=== PATIENT | female | born 2000 | race American Indian/Alaskan Native ===

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

== ENCOUNTER 2021-04-13 18:45 | Emergency (ER) | payer SELFPAY ==
[2021-04-13] MEDS ORDERED: ALPRAZolam 0.5 MG TAB PO ONE (19:34)
[2021-04-13] MEDS ORDERED: ASPIRIN 325 MG TAB PO ONE (19:34)
--- NOTE | 2021-04-13 19:55 | XRay Report ---
CHEST 2 VIEWS INDICATION / CLINICAL INFORMATION: CHEST PAIN. FINDINGS: SUPPORT DEVICES: None. HEART / MEDIASTINUM: No significant abnormality. LUNGS / PLEURA: No significant pulmonary or pleural abnormality. No pneumothorax. ADDITIONAL FINDINGS: No significant additional findings. IMPRESSION: 1. No acute findings. Signer Name: Woody Goodwin MD Signed: 04/13/2021 7:50 PM Workstation Name: [id number]
[2021-04-13 20:00] LABS: Basophils # (Auto) 0.1 K/mm3 (0.0-0.1); Basophils % (Auto) 0.9 % (0.0-1.8); Eosinophils # (Auto) 0.6 K/mm3 (0.0-0.4); Eosinophils % (Auto) 6.7 % (0.0-4.3); Hemoglobin 13.8 gm/dl (10.1-14.3); Lymphocytes # (Auto) 3.4 K/mm3 (1.2-5.4); Lymphocytes % (Auto) 39.6 % (13.4-35.0); Mean Corpuscular HGB Conc 32 % (30-34); Mean Corpuscular Volume 85 fl (79-97); Monocytes # (Auto) 0.4 K/mm3 (0.0-0.8); Monocytes % (Auto) 4.5 % (0.0-7.3); Platelet Count 369 K/mm3 (140-440); Red Blood Count 5.09 M/mm3 (3.65-5.03); Red Cell Distribution Width 12.6 % (13.2-15.2)
[2021-04-13 20:17] LABS: Alanine Aminotransferase 11 units/L (7-56); Albumin 4.8 g/dL (3.9-5); BUN/Creatinine Ratio 16; Blood Urea Nitrogen 13 mg/dL (7-17); Calcium 9.6 mg/dL (8.4-10.2); Hemolysis Index 7
--- NOTE | 2021-04-13 22:42 | Cat Scan Report ---
CTA CHEST WITH IV CONTRAST INDICATION: Pt complains of chest pain since last night, possible P.E.. TECHNIQUE: Axial CT images were obtained through the chest after injection of IV contrast. 3 plane MIP reconstru ctions were produced. All CT scans at this location are performed using CT dose reduction for ALARA b y means of automated exposure control. COMPARISON: None available. FINDINGS: Pulmonary Arteries: No pulmonary emboli. Thoracic Aorta: No acute abnormality. Heart: Normal. Lungs: No acute air space or interstitial disease. Pleura: No pleural effusion. No pneumothorax. Lymph Nodes: No significant adenopathy. Additional Findings: None. Upper Abdomen: No acute findings. Skeletal Structures: No significant osseous abnormality. IMPRESSION: 1. No CT evidence for pulmonary embolism. 2. No acute findings. Signer Name: Woody Woodson MD Signed: 04/13/2021 10:38 PM Workstation Name: [id number]
--- NOTE | 2021-04-13 23:02 | Emergency Department Report ---
ED General Adult HPI - General Chief complaint: Chest Pain Stated complaint: CHEST/BACK PAIN Source: patient Mode of arrival: Ambulatory Limitations: No Limitations - History of Present Illness Initial comments: Patient is a nulliparous 20-year-old -[place]cu[place] female with past medical history of chronic anxiety who presents to the ED with complaint of acute onset persistent anterior chest wall pain that radiates to the mid posterior thoracic area with tightness the last 24 hours. Patient states that the pain is sharp constant and worsened with cough or crying. Patient states that that she is currently living with a lot of family stressors making the symptoms worse. Patient denies dizziness, syncope, nausea and vomiting, abdominal pain, fever, chills, cough, lightheadedness or neck pain and change in vision Or palpitations. MD Complaint: anterior chest wall pain and tightness -: Sudden, hour(s) (24) Location: chest, back Radiation: back Severity scale (0 -10): 7 Quality: aching, sharp Consistency: constant Improves with: none Worsens with: other (crying) Associated Symptoms: denies other symptoms, chest pain. denies: confusion, cough, diaphoresis, fever/chills, headaches, loss of appetite, malaise, jaylon sea/vomiting, rash, shortness of breath, syncope, weakness Treatments Prior to Arrival: none - Related Data Previous Rx's Medication Instructions Recorded Last Taken Type Naproxen 500 mg PO BID PRN #14 tablet 06/18/20 Unknown Rx Naproxen 500 mg PO Q12H PRN #24 tablet 04/13/21 Unknown Rx hydrOXYzine PAMOATE [Vistaril] 25 mg PO Q8HR PRN #30 capsule 04/13/21 Unknown Rx Allergies Allergy/AdvReac Type Severity Reaction Status Date / Time No Known Allergies Allergy Verified 04/13/21 18:50 ED Review of Systems ROS: Stated complaint: CHEST/BACK PAIN Other details as noted in HPI Comment: All other systems reviewed and negative Constitutional: denies: chills, fever Eyes: denies: eye pain, eye discharge, vision change ENT: denies: ear pain, throat pain Respiratory: denies: cough, shortness of breath, wheezing Cardiovascular: chest pain (Anterior chest wall pain with tightness). denies: palpitations Endocrine: no symptoms reported Gastrointestinal: denies: abdominal pain, nausea, diarrhea Genitourinary: denies: urgency, dysuria, discharge Musculoskeletal: back pain (Mid posterior thoracic pain with movement, deep breath or crying.). denies: joint swelling, arthralgia Skin: denies: rash, lesions Neurological: denies: headache, weakness, paresthesias Psychiatric: anxiety. denies: depression Hematological/Lymphatic: denies: easy bleeding, easy bruising ED Past Medical Hx - Medications Home Medications: Home Medications Medication Instructions Recorded Confirmed Last Taken Type Naproxen 500 mg PO BID PRN #14 tablet 06/18/20 Unknown Rx Naproxen 500 mg PO Q12H PRN #24 tablet 04/13/21 Unknown Rx hydrOXYzine PAMOATE [Vistaril] 25 mg PO Q8HR PRN #30 capsule 04/13/21 Unknown Rx ED Physical Exam - General Limitations: No Limitations General appearance: alert, in no apparent distress - Head Head exam: Present: atraumatic, normocephalic, normal inspection - Eye Eye exam: Present: normal appearance, PERRL, EOMI Pupils: Present: normal accommodation - ENT ENT exam: Present: normal exam, normal orophraynx, mucous membranes moist, TM's normal bilaterally, normal external ear exam - Neck Neck exam: Present: normal inspection, full ROM - Respiratory Respiratory exam: Present: normal lung sounds bilaterally, chest wall tenderness (Palpable reproducible anterior chest wall tenderness). Absent: respiratory distress, wheezes, rales, accessory muscle use, decreased breath sounds - Cardiovascular Cardiovascular Exam: Present: regular rate, normal rhythm, normal heart sounds. Absent: systolic murmur, diastolic murmur, rubs, gallop - GI/Abdominal GI/Abdominal exam: Present: soft, normal bowel sounds. Absent: tenderness, guarding, rebound, hyperactive bowel sounds, hypoactive bowel sounds, organome angel, mass - Extremities Exam Extremities exam: Present: normal inspection, full ROM, normal capillary refill - Back Exam Back exam: Present: normal inspection, full ROM. Absent: tenderness, CVA tenderness (R), CVA tenderness (L), muscle spasm, paraspinal tenderness, vertebral tenderness - Neurological Exam Neurological exam: Present: alert, oriented X3, CN II-XII intact, normal gait, reflexes normal - Psychiatric Psychiatric exam: Present: normal affect, normal mood, anxious. Absent: depressed, homicidal ideation, suicidal ideation - Skin Skin exam: Present: warm, dry, intact, normal color. Absent: rash ED Medical Decision Making - Lab Data Result diagrams: 04/13/21 19:39 04/13/21 19:39 - Radiology Data Radiology results: report reviewed, image reviewed - Medical Decision Making This is a nulliparous 20-year-old -[place] female with past medical history of chronic anxiety who presents to the ED with complaint of acute onset persistent anterior chest wall pain that radiates to the mid posterior thoracic area with tightness the last 24 hours. Patient states that the pain is sharp constant and worsened with cough or crying. Patient states that that she is currently living with a lot of family stressors making the symptoms worse. In the ED, patient is alert and oriented x3 and is not in any distress. Patient is however anxious, crying during the physical exam. The physical exam is significant for reproducible anterior chest wall tenderness consistent with costochondritis. Patient heart score is zero and patient hemodynamically st able. Patient was treated for pain and also treated for anxiety. Lab test results were reviewed and are all unremarkable except for D-dimer level which was 774.12. Chest x-ray showed no acute cardiopulmonary abnormalities or pneumonitis. Chest CTA showed no evidence of PE or any cardiopulmonary abnormalities or pneumonitis. On reevaluation, patient felt better, patient's pain resolved in the ED and patient is hemodynamically stable. Patient will discharge home on pain medications and medicine for anxiety and advised to follow-up with her primary care physician in 5 to 7 days for reevaluation or return to the ED immediately if symptoms get worse. - Differential Diagnosis PE; pneumonia; ACS; costochondritis; anxiety; muscle strain Critical care attestation.: If time is entered above; I have spent that time in minutes in the direct care of this critically ill patient, excluding procedure time. ED Disposition Clinical Impression: Anxiety as acute reaction to exceptional stress, Acute costochondritis, Acute nonspecific chest pain with low risk of coronary artery disease Disposition: 01 HOME / SELF CARE / HOMELESS Is pt being admited?: No Does the pt Need Aspirin: No Condition: Stable Instructions: Chest Pain (ED), Costochondritis, [id number], Chest Wall Pain, Jzni-wj-Blyo, Nonspecific Chest Pain, Adult, [id number], Generalized Anxiety Disorder, Adult Additional Instructions: All lab test results were reviewed and are all nonactionable. Chest x-ray showed no acute cardiopulmonary abnormalities or pneumonitis. Chest CTA showed no evidence of pulmonary embolism or pneumonia. Therefore your symptoms are likely due to anxiety worsening a chest wall inflammation and pain. Therefore take medications as advised for pain, also take medications for anxiety as needed and follow-up with your primary care physician in 5 to 7 days for reevaluation. Return to the ED immediately if symptoms get worse Prescriptions: Naproxen 500 mg PO Q12H PRN #24 tablet PRN Reason: Pain , Severe (7-10) hydrOXYzine PAMOATE [Vistaril] 25 mg PO Q8HR PRN #30 capsule PRN Reason: Anxiety Referrals: [facility] [Provider Group] - 3-5 Days Forms: Work/School Release Form(ED) Time of Disposition: 23:08 Print Language: UZBEK
[2021-04-14 00:27] VITALS: BP 117/64
--- NOTE | 2021-04-14 09:15 | Electrocardiograph Report ---
[facility] Test Date: 2021-04-13 Test Time: 19:54:47 Pat Name: VIANNEY CESPEDES Department: Room: Gender: F [employer] Technician: MAYRA : 2000 Requested By: MANNY NINA Order Number: [id number] Reading MD: Nishant Green Measurements Intervals [place] Rate: 67 P: 49 FL: 149 QRS: 76 QRSD: 77 T: 52 QT: 375 QTc: 398 Interpretive Statements Sinus rhythm No previous ECG available for comparison Electronically Signed On 04-14-2021 9:15:08 EDT by Nishant Green
== END 2021-04-14 00:12 | disposition home or self-care (01) ==
LOC: ED 18:45
DX: M94.0 Chondrocostal junction syndrome [Tietze] (principal); I25.10 Atherosclerotic heart disease of native coronary artery without angina pectoris; F41.9 Anxiety disorder, unspecified; Z79.899 Other long term (current) drug therapy
CPT/HCPCS: 36415; 71046; 71275; 80053; 84484; 85025; 85379; 93005; 99284; Q9967